=== PATIENT | female | born 1985 | race Caucasian/White ===

== ENCOUNTER 2022-01-19 09:14 | Outpatient (CLI) | payer OTHER, MEDICAID, SELFPAY | END 2022-01-19 18:00 | disposition home or self-care (01) | PROVIDERS: Family Provider Nurse Practitioner; PCP Nurse Practitioner; Referring Provider Nurse Practitioner; Visit Provider Nurse Practitioner | DX: R20.2 Paresthesia of skin (principal) | CPT/HCPCS: 95886; 95910 ==